=== PATIENT | female | born 1965 | race Caucasian/White ===

== ENCOUNTER 2016-08-29 12:30 | Day surgery (SDC) | payer BC ==
[2016-08-25 20:43] LABS: HEMATOCRIT 46.2 % (36.0-48.0); HEMOGLOBIN 15.4 g/dL (12.0-16.0)
[2016-08-25 20:46] LABS: PARTIAL THROMBO TIME 34.1 SEC (22.5-37.2); PROTIME (NOT ORD) 12.6 SEC (12.0-14.5)
--- NOTE | ~2016-08-29 | OP ---
Record Of [facility] [address] [place]. [address] NAME: KERRY DOUGLAS : 65 STATUS : [facility]#: [id number] AGE: 51 ADM/REG DATE : 08/29/16 MR#: [id number] REPORT SERV DATE: 08/29/16 DICTATED BY: COLLEEN BOLIVAR DATE: 08/29/16 REPORT STATUS : Draft TRANSCRIBED BY: MODL DATE: 08/29/16 DATE OF PROCEDURE: 08/29/2016 PREOPERATIVE DIAGNOSIS: 1. 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 2. Left epiglottic mucocele. POSTOPERATIVE DIAGNOSES: 1. 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 2. Left epiglottic mucocele. PROCEDURE PERFORMED: 1. Wide local excision, left nasal vestibule squamous cell carcinoma. 2. Direct laryngoscopy with excision/marsupialization of a left epiglottic mucocele. SURGEON: Colleen Bolivar MD MEDICAL RECEPTIONIST ASSISTANT: None. ANESTHESIA: General. COMPLICATIONS: None. CONDITION: The patient was handed over to Liang Groves for reconstruction of the left nasal vestibular defect. INDICATIONS: A 51-year-old female with left nasal vestibular squamous cell carcinoma based on biopsy by Dr. Dunn showing a moderately differentiated squamous cell carcinoma. Risks, benefits, and alternatives to surgery were explained and she agreed. Additional findings during intubation, a mucocele pedunculated emanating from the left lateral epiglottic fold was noted, partially ball-valving into the glottic introitus. The patient was intubated and then the family was contacted regarding marsupialization/evacuation of the mucocele for airway protection. Informed consent was signed by her . PROCEDURE IN DETAIL: The patient was identified in the preoperative holding, and taken back to the operating room, and placed supine on the operating room table. General anesthesia was established. During the laryngoscopy for intubation, large epiglottic mucocele was noted, partially ball-valving into the glottic introitus. A glide scope was then used to perform intubation without difficulty. At this point, the patient was secured and prepped for the procedure while I went and spoke to the family, in particular her about the ball-valving mucocele. I recommended direct laryngoscopy with evacuation of the mucocele to help with protecting her airway during extubation and going forward. He signed informed consent. Record Of Operation [facility] [address] [place]. [address] NAME: KERRY DOUGLAS : 65 STATUS : [facility]#: [id number] AGE: 51 ADM/REG DATE : 08/29/16 MR#: [id number] REPORT SERV DATE: 08/29/16 DICTATED BY: COLLEEN BOLIVAR DATE: 08/29/16 REPORT STATUS : Draft TRANSCRIBED BY: ZULEYMA DATE: 08/29/16 At this point, the patient was prepped and draped in a standard fashion. A time-out was called. The patient and procedure were confirmed. Initially Dr. Groves performed a transfixion incision external rhinoplasty approach running along the outer rim of the left nasal vestibule and into the floor of the vestibule and out lateral aspect of the vestibule just inside the rim of the nose. The dissection was made down to the medial core of the lower lateral cartilages. A 1 cm swath of vestibular mucosa in the area of the previous biopsy was taken. We could see scarring from the biopsy and we were able to deliver this portion of the nasal vestibule and membranous septum into the operative field to excise a credit representative area around the biopsy site. It was tagged into 12 o'clock and sent to pathology. Frozen section showed no evidence of persistent squamous cell carcinoma. A repair response was noted centrally in the lesion. At this point, Dr. Groves repaired the defect in the left nasal vestibule. After the nasal repair was performed, I performed direct laryngoscopy. She was prepped and draped in a standard fashion for laryngoscopy. Initially, Beatrice anterior commissure laryngoscope was used to examine the oropharynx, hypopharynx, and larynx. I used a tooth guard as she had large veneers and exposure was somewhat difficult given her large veneers, small mandible, and large tongue. I was able the identify a large mucocele pedunculated and emanating from the left lateral edge of the epiglottis. I then used a Dedo laryngoscope and suspended this using the binocular microscope on 40x and I was able to marsupialize the mucocele using feather soft cup forceps and the straight scissors, and a sickle knife. The mucus was aspirated and the mucocele resolved. It was no longer obstructing or in danger of obstructing the airway. At this point, there was no bleeding. I removed the Dedo anterior commissure laryngoscope along with the teeth guard. The patient was handed over to Anesthesia for extubation and returned to recovery. There were no complications. PH/MODL Colleen Bolivar M.D. / [id number] CC: Colleen Bolivar M.D.
[~2016-08-29 12:30] MED LIST: ACAI500 MG OR; ADDER10 PO; NORCO1 TAB PO; TOPAMAX50 MG PO; V5 PO
== END 2016-08-29 20:10 | disposition home or self-care (01) ==
LOC: SDC 12:30
PROVIDERS: Otolaryngology; Specialist
PROC: 0HX1XZZ Transfer Face Skin, External Approach (ICD-10-PCS; principal; 2016-08-29 13:45)
PROC: 0CBR8ZZ Excision of Epiglottis, Via Natural or Artificial Opening Endoscopic (ICD-10-PCS; 2016-08-29 13:45)
DX: C44.329 Squamous cell carcinoma of skin of other parts of face (principal); J38.7 Other diseases of larynx; F17.210 Nicotine dependence, cigarettes, uncomplicated; J44.9 Chronic obstructive pulmonary disease, unspecified; Z90.89 Acquired absence of other organs; Z90.710 Acquired absence of both cervix and uterus; Z90.49 Acquired absence of other specified parts of digestive tract; Z86.73 Personal history of transient ischemic attack (TIA), and cerebral infarction without residual deficits
CPT/HCPCS: 36415; 85014; 85018; 85610; 85730; 88305; 88331; 93005; A9270-GY; J0330; J0690; J2250; J2405; J2710; J3010